=== PATIENT | female | born 1995 | race Caucasian/White ===

== ENCOUNTER 2017-05-23 10:46 | Emergency (ER) | payer BC ==
--- NOTE | 2017-05-23 11:47 | RAD ---
THREE VIEWS LEFT FOOT: COMPARISON: None. HISTORY: Left foot pain after dropping a table on her foot. FINDINGS: Three views of the left foot show no evidence of acute fracture or dislocation. Mild dorsal soft tis willie swelling is seen. No degenerative changes are present. IMPRESSION: No evidence of acute osseous abnormality. POS: [facility]
[2017-05-23] MEDS ORDERED: Ibuprofen 200 MG TAB ONE (12:48)
== END 2017-05-23 13:11 | disposition home or self-care (01) ==
LOC: ERS 10:46
DX: S90.32XA Contusion of left foot, initial encounter (principal); W20.8XXA Other cause of strike by thrown, projected or falling object, initial encounter